=== PATIENT | male | born 1990 | race Caucasian/White ===

== ENCOUNTER 2017-12-30 19:59 | Emergency (ER) | payer SELFPAY ==
--- NOTE | 2017-12-30 20:26 | ED Physician Chart ---
ED Chief Complaint/HPI - Patient Information Date Seen:: 12/30/17 Time Seen:: 20:10 Chief Complaint:: altered level consciousness History of Present Illness:: Patient was in residential having been arrested for intoxicated in public and reportedly had 2 tonic-clonic seizures each lasting 30 seconds. Patient denies having had a seizure. No tongue biting or urinary incontinence. Patient denies history of seizures. Patient states he drank less than a fifth of vodka today. For the last 5 years patient has been taking less than half a milligram of Xanax a day. He states he has not run out of Xanax recently. Allergies:: Allergies Allergy/AdvReac Type Severity Reaction Status Date / Time No Known Allergies Allergy Verified 12/30/17 20:13 Vitals:: Vital Signs - 8 hr 12/30/17 20:00 Temp 97.0 F HR 92 RR 18 BP 137/91 O2 Sat % 99 Historian:: Patient Review:: Nurse's Note Reviewed ED Review of Systems - Review of Systems General/Constitutional: No fever, No chills Skin: No skin lesions Head: No headache Eyes: No loss of vision ENT: No earache Neck: No neck pain Cardio Vascular: No chest pain, No palpitations Pulmonary: No SOB GI: No nausea, No vomiting, No diarrhea Musculoskeletal: No bone or joint pain Endocrine: No polyuria Psychiatric: Anxiety Hematopoietic: No bruising Allergic/Immuno: No urticaria Neurological: No syncope, No focal symptoms Family Medical History - Family Member Mother History Unknown: Yes ED Physical Exam - Physical Examination General/Constitutional: Awake, Well-developed, well-nourished, Alert, No distress, GCS 15, Non-toxic appearing, Ambulatory Head: Atraumatic Eyes: Lids, conjuctiva normal, PERRL, EOMI Skin: Nl inspection, No rash, No skin lesions, No ecchymosis, Well hydrated, No lymphadenopathy ENMT: External ears, nose nl, Nasal exam nl, Lips, teeth, gums nl Neck: Nontender, Full ROM w/o pain, No JVD, No nuchal rigidity, No bruit, No mass, No stridor Respiratory: Nl effort/Exclusion, Clear to Auscultation, No Wheeze/Rhonchi/Rales Cardio Vascular: RRR, No murmur, gallop, rubs, NL S1 S2 GI: No tenderness/rebounding/guarding, No organomegaly, No hernia, Normal BS's, Nondistended, No mass/bruits, No McBurney tenderness : No CVA tenderness Extremities: No tenderness or effusion, Full ROM, normal strength in all extremities, No edema, Normal digits & nails Neuro/Psych: Alert/oriented, DTR's symmetric, Normal sensory exam, Normal motor strength, Judgement/insight normal, Mood normal, Normal gait, No focal deficits Misc: Normal back, No paraspinal tenderness ED Labs/Radiology/EKG Results - Lab Results Results: Laboratory Results - last 24 hr 12/30/17 20:33 WBC 5.6 RBC 4.87 Hgb 15.4 Hct 44.8 MCV 91.9 MCH 31.5 H MCHC Differential 34.3 RDW 12.1 Plt Count 244 MPV 9.3 Neutrophils % 56.0 Lymphocytes % 38.1 Monocytes % 5.1 Eosinophils % 0.5 Basophils % 0.3 ED Assessment - Assessment General Assessment: Patient eloped from the emergency department before 2105 ED Septic Shock - . Is Septic Shock (SBP<90, OR Lactate>4 mmol\L) present?: No - <6hrs of presentation: Vital Signs: Vital Signs - 8 hr 12/30/17 20:00 Temp 97.0 F HR 92 RR 18 BP 137/91 O2 Sat % 99 ED Reassessment (Disposition) - Reassessment Reassessment:: It is uncertain whether the patient had tonic-clonic seizures. He was very lucid here and certainly did not appear postictal. Reassessment Condition:: Improved - Diagnosis Diagnosis:: Possible seizures; alcohol consumption; benzodiazepine use - Patient Disposition Discharge/Transfer:: Elope/AWOL Condition at Disposition:: Stable, Improved
[2017-12-30 20:54] LABS: % BASOPHILS 0.3 % (0.0-2.0); % EOSINOPHILS 0.5 % (0.0-5.0); % LYMPHOCYTES 38.1 % (20.0-50.0); % MONOCYTES 5.1 % (2.0-10.0); HEMATOCRIT 44.8 % (41.0-60); HEMOGLOBIN 15.4 gm/dL (12-16); LYMPHOCYTE ABSOLUTE 2.1 Th/cmm (1.5-3.0); MEAN CELL VOLUME 91.9 fl (80-99); MEAN CORPUSCULAR HEMOGLOBIN 31.5 pg (26.0-30.0); MEAN CORPUSCULAR HGB CONC 34.3 pg (28.0-36.0); MEAN PLATELET VOLUME 9.3 fl; MONOCYTE ABSOLUTE 0.3 Th/cmm (0.3-1.0); NEUTROPHILE ABSOLUTE 3.2 Th/cmm (1.8-8.0); PLATELET COUNT 244 Th/cmm (150-400); RED BLOOD COUNT 4.87 Mil/cmm (4.30-5.70); RED CELL DISTRIBUTION WIDTH 12.1 % (11.5-20.0); WHITE BLOOD COUNT 5.6 Th/cmm (4.8-10.8)
[2017-12-30 21:06] LABS: ANION GAP 13.3 (7.0-16.0); BUN - UREA NITROGEN 13 mg/dL (7-25); CALCIUM SERUM 8.9 mg/dL (8.6-10.3); CARBON DIOXIDE 23.5 mEq/L (21.0-31.0); CHLORIDE 108 mEq/L (98-107); CREATININE - SERUM 0.7 mg/dL (0.7-1.3); GFR AFRICAN-AMERICAN > 60.0 ml/min (>90); GFR NON AFRICAN-AMERICAN > 60.0 ml/min; GLUCOSE 92 mg/dL (70-105); MAGNESIUM 2.4 mg/dL (1.9-2.7); POTASSIUM SERUM 3.8 mEq/L (3.5-5.1); SODIUM SERUM 141 mEq/L (136-145)
== END 2017-12-30 21:15 | disposition left against medical advice (07) ==
LOC: ER 19:59
DX: F13.20 Sedative, hypnotic or anxiolytic dependence, uncomplicated (principal); F10.10 Alcohol abuse, uncomplicated
CPT/HCPCS: 36415-UA; 80048-TC; 80320-TC; 83735-TC; 85025-TC; Z7502